=== PATIENT | female | born 1985 | race Caucasian/White ===

== ENCOUNTER 2017-07-14 09:25 | Emergency (ER) | payer OTHER ==
[~2017-07-14] VITALS: Ht 165.1 cm; Wt 99.0 kg
[~2017-07-14 09:25] MED LIST: CHOL50006 PO
[2017-07-14 09:31] VITALS: BP 140/65; PULSE 104; RESP 16; TEMP 99.5; O2SAT 97
[2017-07-14] MEDS ORDERED: AMOX500C PO (09:49)
[2017-07-14] MEDS ORDERED: CLIN1CAP5 PO (09:59)
[2017-07-14] MEDS ORDERED: PRED20 PO (09:59)
--- NOTE | 2017-07-14 09:59 | PD ---
HPI Chief Complaint: ENT Complaint Time Seen by Provider: 09:45 Travel History International Travel<30 days: No Contact w/Intl Traveler<30days: No Traveled to known affect area: No History of Present Illness HPI 31-year-old female complains of sore throat. Patient states that she started having sore throat about 6 days ago. Patient was seen by personal physician and given prescription for amoxicillin. Patient has been taking amoxicillin as directed. Patient states that she have persistent pain and the pain is worse for the past day. Patient states that she has pain with swallowing. Patient denies any fever chills. Patient states the pain radiated to the left ear. Patient has history recurrent throat infection in the past. PFSH Past Medical History Anxiety: Yes Depression: Yes Cancer: No Cardiovascular Problems: No Diabetes: No Diminished Hearing: No Endocrine: No Genitourinary: No Headaches: Yes Hepatitis: No Hiatal Hernia: No Immune Disorder: No Musculoskeletal: No Neurologic: Yes (MIGRAINES) Psychiatric: No Reproductive: No Respiratory: No Migraines: Yes Thyroid Disease: No ?: Not Past Surgical History Abdominal Surgery: No AICD: No Cardiac Surgery: No Cholecystectomy: Yes Ear Surgery: Yes (PE TUBES (MULTIPLE TIMES)) Endocrine Surgery: No Eye Surgery: No Genitourinary Surgery: No Gynecologic Surgery: No Joint Replacement: No Pacemaker: No Thoracic Surgery: No Tympanostomy Tube: Yes Other Surgery: Yes Social History Alcohol Use: Yes (COUPLE DRINKS PER WEEK) Tobacco Use: No Substance Use: No Allergies-Medications (Allergen,Severity, Reaction): Coded Allergies: ciprofloxacin (Verified Allergy, Severe, HIVES, 07/14/17) codeine (Verified Allergy, Severe, Nausea/Vomiting, 07/14/17) fire ant (Unverified Allergy, Intermediate, SWELLING, 07/14/17) Reported Meds & Prescriptions Reported Meds & Active Scripts Active Reported Amoxicillin 500 Mg Cap 500 Mg PO BID Review of Systems General / Constitutional: No: Fever Eyes: No: Visual changes HENT: Positive: Sore Throat, No: Headaches Cardiovascular: No: Chest Pain or Discomfort Respiratory: No: Shortness of Breath Gastrointestinal: No: Abdominal Pain Genitourinary: No: Dysuria Musculoskeletal: No: Pain Skin: No Rash Neurologic: No: Weakness Psychiatric: No: Depression Endocrine: No: Polydipsia Hematologic/Lymphatic: No: Easy Bruising Physical Exam Narrative GENERAL: Well-nourished, well-developed patient. SKIN: Focused skin assessment warm/dry. HEAD: Normocephalic. EYES: No scleral icterus. No injection or drainage. TM: Clear. Throat: Left tonsil erythematous with edema and exudate. NECK: Supple, trachea midline. No JVD. Patient has left anterior cervical lymphadenopathy. No meningismus CARDIOVASCULAR: Regular rate and rhythm without murmurs, gallops, or rubs. RESPIRATORY: Breath sounds equal bilaterally. No accessory muscle use. GASTROINTESTINAL: Abdomen soft, non-tender, nondistended. MUSCULOSKELETAL: No cyanosis, or edema. BACK: Nontender without obvious deformity. No CVA tenderness. Data Data Last Documented VS Vital Signs Date Time Temp Pulse Resp B/P (MAP) Pulse Ox O2 Delivery O2 Flow Rate FiO2 07/14/17 09:31 99.5 104 16 140/65 (90) 97 Room Air Orders Orders Clindamycin Inj (Cleocin Inj) (07/14/17 10:00) [facility] Medical Decision Making Medical Screen Exam Complete: Yes Emergency Medical Condition: Yes Differential Diagnosis Differential diagnosis including strep versus viral pharyngitis, peritonsillar abscess, retropharyngeal abscess. Narrative Course 31-year-old female with persistent sore throat. Patient is on amoxicillin. Clindamycin 600 mg IM. Diagnosis Primary Impression: Pharyngitis Qualified Codes: J02.9 - Acute pharyngitis, unspecified Patient Instructions: General Instructions Additional Instructions: Stop amoxicillin. Clindamycin as directed. Prednisone is directed. Tylenol for fever. Follow-up with personal physician. Return if persistent problem or worse. Med/Other Pt SpecificInfo: Prescription(s) given Scripts Prednisone (Prednisone) 20 Mg Tab 20 MG PO BID, #10 TAB 0 Refills Prov: Andre Camara MD 07/14/17 Clindamycin (Clindamycin) 150 Mg Cap 2 TAB PO Q6H for Infection, #80 CAP 0 Refills Prov: Andre Camara MD 07/14/17 Disposition: 01 DISCHARGE HOME Condition: Stable Andre Camara MD Jul 14, 2017 09:59
[2017-07-14] MEDS ORDERED: CLINDAMYCIN PHOS 600 MG/4 ML VIAL IM ONE (10:00)
== END 2017-07-14 10:29 | disposition home or self-care (01) ==
LOC: PHED 09:25
DX: J02.9 Acute pharyngitis, unspecified (principal)
CPT/HCPCS: 96372